=== PATIENT | male | born 1995 | race Caucasian/White ===

== ENCOUNTER 2018-02-26 08:36 | Emergency (ER) | payer SELFPAY ==
[~2018-02-26] VITALS: Ht 182.9 cm; Wt 98.9 kg
[2018-02-26 08:41] VITALS: BP 130/70; Ht 182.9 cm; Wt 98.9 kg
== END 2018-02-26 11:23 | disposition home or self-care (01) ==
LOC: ED 08:36
DX: J06.9 Acute upper respiratory infection, unspecified (principal); R51 Headache
CPT/HCPCS: J0780; J1885; Q0162